=== PATIENT | female | born 1945 | race Caucasian/White ===

== ENCOUNTER 2016-05-01 13:56 | Emergency (ER) | payer MEDICARE, OTHER ==
[~2016-05-01] VITALS: Wt 71.6 kg
[~2016-05-01 13:56] MED LIST: ATEN-51 PO; LEVO50TA83; LOSA50TA6 PO; MECL-77 PO; TRAM50TA2 PO
[2016-05-01] MEDS ORDERED: ONDANSETRON 4 MG INJ IV STA (15:39)
[2016-05-01] MEDS ORDERED: LORAZEPAM 1 MG TAB PO ONE (16:00)
[2016-05-01] MEDS ORDERED: MECLIZINE 12.5 MG TAB PO ONE (16:00)
[2016-05-01 16:04] LABS: ADD UMIC YES; URINE BILIRUBIN (Dip) NEGATIVE (NEGATIVE); URINE BLOOD (Dip) NEGATIVE (NEGATIVE); URINE COLOR LT. YELLOW (YELLOW); URINE GLUCOSE (Dip) NEGATIVE (NEGATIVE); URINE KETONES (Dip) NEGATIVE (NEGATIVE); URINE LEUKOCYTE ESTERASE (Dip) 1+ (NEGATIVE); URINE NITRITE (Dip) NEGATIVE (NEGATIVE); URINE TOTAL PROTEIN (Dip) NEGATIVE (NEGATIVE); URINE UROBILINOGEN (Dip) 0.2 E.U./dL (0.1-1.0)
[2016-05-01 16:15] LABS: ADD SCAN DIFF NO
[2016-05-01 16:20] LABS: BACTERIA,URINE FEW; URINE RBCS 0-2 /HPF (0)
[2016-05-01 16:21] LABS: BASOPHIL # 0.1 10^3/ul (0.0-0.1); BASOPHILS % 0.7 % (0.0-2.0); EOSINOPHILS # 0.4 10^3/ul (0.0-0.5); EOSINOPHILS % 3.6 % (0.0-7.0); HEMATOCRIT 42.3 % (37.0-47.0); HEMOGLOBIN 13.8 g/dl (12.0-16.0); MEAN CORPUSCULAR HEMOGLOBIN 30.9 pg (29.0-33.0); MEAN CORPUSCULAR HGB CONC 32.6 g/dl (32.0-37.0); MEAN CORPUSCULAR VOLUME 94.8 fl (82.0-101.0); MEAN PLATELET VOLUME 10.6 fl (7.4-10.4); MONOCYTES % 9.4 % (0.0-11.0); NEUTROPHIL # 6.1 10^3/ul (1.6-7.5); NEUTROPHILS % 57.9 % (39.0-77.0); PLATELET COUNT 325 10^3/UL (140-415); RED BLOOD COUNT 4.46 10^6/ul (4.20-5.40); RED CELL DISTRIBUTION WIDTH 13.3 % (11.5-14.5); WHITE BLOOD COUNT 10.6 10^3/ul (4.8-10.8)
[2016-05-01 16:45] LABS: ALBUMIN/GLOBULIN RATIO 1.14; BILIRUBIN,INDIRECT 0.9 mg/dl (0-1.1); BILIRUBIN,TOTAL 0.9 mg/dl (0.2-1.3); CREATININE 0.65 mg/dl (0.44-1.00); TOTAL PROTEIN 7.5 g/dl (6.1-8.1)
[2016-05-01 16:46] LABS: CALCIUM 9.4 mg/dl (8.4-10.2)
[2016-05-01] MEDS ORDERED: MECL-77 PO (17:33)
[2016-05-01] MEDS ORDERED: ONDA8TAB14 PO (17:33)
--- NOTE | 2016-05-01 17:36 | ERD ---
ER Documentation Chief Complaint Date/Time DATE: 05/01/16 TIME: 17:34 Chief Complaint DIZZINESS SINCE THIS MORNING. NO HEADACHE. NO BLURRY VISION. NO NEURODEF HPI 7-year-old female presents with a spinning type dizziness since this morning. Is worse with lying back and head movement. She denies headache, visual changes , weakness, bowel or bladder incontinence, history of trauma. She has a similar episode in January had normal labs, CT EKG and diagnosed with positional vertigo. She was improved until this morning. ROS All systems reviewed and are negative except as per history of present illness. Medications Home Meds Active Scripts Ondansetron (Ondansetron Odt) 8 Mg Tab.rapdis, 8 MG PO Q6H Y for NAUSEA AND/OR VOMITING, #10 TAB Prov:BARRY WOODS MD 05/01/16 Meclizine Hcl* (Meclizine Hcl*) 25 Mg Tablet, 25 MG PO Q8H Y for DIZZINESS, #20 TAB Prov:BARRY WOODS MD 05/01/16 Meclizine Hcl* (Meclizine Hcl*) 25 Mg Tablet, 25 MG PO Q8H Y for DIZZINESS for 30 Days, TAB Prov:RLYAN CALIXTO MD 02/26/16 Tramadol HCl (Tramadol HCl) 50 Mg Tablet, 50 MG PO Q6, #20 TAB Prov:RISHABH TITUS DO 07/09/15 Reported Medications Atenolol* (Atenolol*) 25 Mg Tablet, 25 MG PO DAILY, TAB 02/04/14 Losartan Potassium* (Losartan Potassium*) 50 Mg Tablet, 50 MG PO DAILY, TAB 02/04/14 Levothyroxine Sodium* (Synthroid*) 50 Mcg Tablet, daily 02/27/11 Allergies Allergies: Coded Allergies: Penicillins (Verified Allergy, Intermediate, HIVES, 02/04/14) Amoxicillin (Verified Allergy, Unknown, PT DOES NOT REMEMBER, 02/04/14) PMhx/Soc History of Surgery: No Anesthesia Reaction: No Hx Neurological Disorder: No Hx Respiratory Disorders: No Hx Cardiac Disorders: Yes (HTN,ACS) Hx Psychiatric Problems: No Hx Miscellaneous Medical Probl: Yes (Hypothyroidism, high cholestoral) Hx Alcohol Use: No Hx Substance Use: No Hx Tobacco Use: No Smoking Status: Never smoker Physical Exam Vitals Vital Signs Date Time Temp Pulse Resp B/P Pulse Ox O2 Delivery O2 Flow Rate FiO2 05/01/16 14:27 98.4 64 20 155/71 97 Physical Exam Const: [] Head: Atraumatic Eyes: Normal Conjunctiva ENT: Normal External Ears, Nose and Mouth. Neck: Full range of motion..~ No meningismus. Resp: Clear to auscultation bilaterally Cardio: Regular rate and rhythm, no murmurs Abd: Soft, non tender, non distended. Normal bowel sounds Skin: No petechiae or rashes Back: No midline or flank tenderness Ext: No cyanosis, or edema Neur: Awake and alert Psych: Normal Mood and Affect Result Diagram: 05/01/16 1600 05/01/16 1600 Results 24 hrs Laboratory Tests Test 05/01/16 15:54 05/01/16 16:00 Urine Bacteria FEW Urine Bilirubin NEGATIVE Urine Clarity CLEAR Urine Color LT. YELLOW Urine Epithelial Cells FEW Urine Glucose NEGATIVE% Urine Hemoglobin NEGATIVE Urine Ketones NEGATIVE Urine Leukocyte Esterase 1+ Urine Microscopic RBC 0-2/HPF Urine Microscopic WBC 10-25/HPF Urine Nitrite NEGATIVE Urine Specific [place] 1.010 Urine Total Protein NEGATIVE Urine Urobilinogen 0.2 E.U./dL Urine pH 6.0 Alanine Aminotransferase (ALT/SGPT) 32IU/L Albumin 4.0g/dl Albumin/Globulin Ratio 1.14 Alkaline Phosphatase 136IU/L Anion Gap 16 Aspartate Amino Transf (AST/SGOT) 31IU/L Basophils # 0.110^3/ul Basophils % 0.7% Blood Urea Nitrogen 11mg/dl Calcium Level 9.4mg/dl Carbon Dioxide Level 26mmol/L Chloride Level 106mmol/L Creatinine 0.65mg/dl Direct Bilirubin 0.00mg/dl Eosinophils # 0.410^3/ul Eosinophils % 3.6% Globulin 3.50g/dl Glucose Level 95mg/dl Hematocrit 42.3% Hemoglobin 13.8g/dl Indirect Bilirubin 0.9mg/dl Lipase 91U/L Lymphocytes # 3.010^3/ul Lymphocytes % 28.0% Mean Corpuscular Hemoglobin 30.9pg Mean Corpuscular Hemoglobin Concent 32.6g/dl Mean Corpuscular Volume 94.8fl Mean Platelet Volume 10.6fl Monocytes # 1.010^3/ul Monocytes % 9.4% Neutrophils # 6.110^3/ul Neutrophils % 57.9% Nucleated Red Blood Cells # 0.010^3/ul Nucleated Red Blood Cells % 0.0/100WBC Platelet Count 35333^3/UL Potassium Level 4.0mmol/L Red Blood Count 4.4610^6/ul Red Cell Distribution Width 13.3% Sodium Level 144mmol/L Total Bilirubin 0.9mg/dl Total Protein 7.5g/dl White Blood Count 10.610^3/ul Current Medications Medications (Trade) Dose Ordered Sig/Mukul Route PRN Reason Start Time Stop Time Status Last Admin Dose Admin Ondansetron HCl (Zofran Inj) 4 mg ONCE STAT IV 05/01/16 15:39 05/01/16 15:41 DC 05/01/16 16:01 Lorazepam (Ativan) 1 mg ONCE ONCE PO 05/01/16 16:00 05/01/16 16:01 DC 05/01/16 16:01 Meclizine HCl (Antivert) 25 mg ONCE ONCE PO 05/01/16 16:00 05/01/16 16:01 DC 05/01/16 16:01 Procedures/MDM Patient was in considerable discomfort due to symptoms. Patient was given Ativan 1 mg by mouth and Zofran 8 mg by mouth. Additionally given Antivert 25 mg. Patient was resting comfortably after observation and treatment. CBC and CMP normal. Urine shows 1+ leukocyte esterase with 30 WBCs and few bacteria. Patient was given Keflex 500 mg by mouth. Patient declined a CT brain as she had a normal CT 3 months ago. EKG: Rate/Rhythm: [Normal Sinus Rhythm] rate equals 64. QRS, ST, T-waves: [No changes consistent w/ acute ischemia] Impression: [No evidence of ischemia or arrhythmia] Patient has signs and symptoms of peripheral vertigo. Signs or symptoms do not suggest central causes, meningitis, neurologic deficit. She will treated with Antivert, Zofran and further observation at home. Patient has signs of UTI as well be treated for this but I doubt cause of symptoms. Patient is advised to recheck for shortness breath, chest pain, weakness, new or worsening symptoms as directed after instructions with primary care doctor this week. Departure Diagnosis: Primary Impression: Vertigo Additional Impression: UTI (urinary tract infection) Urinary tract infection type: acute cystitis Hematuria presence: without hematuria Qualified Code: N30.00 - Acute cystitis without hematuria Condition: Stable Patient Instructions: Vertigo, Unspecified Additional Instructions: Examines normal hoy. Cheque otro vez con sheth doctor primario en el proximo [place] or regresa para mas o nueva simptomas. BARRY WOODS MD May 01, 2016 17:36
[2016-05-01] MEDS ORDERED: CEPH-443 PO (17:37)
[2016-05-01 17:51] VITALS: BP 140/71; PULSE 62; RESP 16; TEMP 97.7
[2016-05-01] MEDS ORDERED: CEPHALEXIN 500 MG CAP PO ONE (18:00)
== END 2016-05-01 17:51 | disposition home or self-care (01) ==
LOC: FTE 13:56
DX: R42 Dizziness and giddiness (principal); N30.00 Acute cystitis without hematuria; I10 Essential (primary) hypertension; E03.9 Hypothyroidism, unspecified
CPT/HCPCS: 80053; 81001; 83690; 85025; 93005; 96374; 99284; J2405; 81003

== ENCOUNTER 2018-06-01 09:20 | Emergency (ER) | payer MEDICARE, OTHER ==
[~2018-06-01] VITALS: Wt 78.0 kg
[~2018-06-01 09:20] MED LIST changes: +CEPH-443 PO; -LEVO50TA83; +LEVO50TA89; +LOSA50TA14 PO; -LOSA50TA6 PO; +ONDA8TAB14 PO
[2018-06-01 09:25] VITALS: BP 120/67; PULSE 67; RESP 18
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
[2018-06-01] MEDS ORDERED: ACETAMINOPHEN 325 MG TAB PO ONE (10:30)
[2018-06-01] MEDS ORDERED: LORAZEPAM 0.5 MG TAB PO ONE (10:30)
[2018-06-01] MEDS ORDERED: ACET325T33 PO (10:48)
[2018-06-01] MEDS ORDERED: LORA-441 PO (10:48)
== END 2018-06-01 11:14 | disposition home or self-care (01) ==
LOC: FTE 09:20
DX: M54.2 Cervicalgia (principal); R07.9 Chest pain, unspecified; I10 Essential (primary) hypertension; E03.9 Hypothyroidism, unspecified
CPT/HCPCS: 71046; 72040